=== PATIENT | male | born 1935 | race Caucasian/White ===

== ENCOUNTER 2022-07-04 12:59 | Outpatient (CLI) | payer MEDICARE, OTHER | END 2022-07-04 23:59 | disposition short-term general hospital (02) | LOC: EMS 12:59 | DX: R53.1 Weakness (principal); R11.10 Vomiting, unspecified; R19.7 Diarrhea, unspecified; E86.0 Dehydration; R53.81 Other malaise | CPT/HCPCS: A0425; A0427; A0888 ==